=== PATIENT | male | born 1955 | race Caucasian/White ===

== ENCOUNTER 2017-07-09 11:58 | Observation (INO) | payer MEDICARE ==
[2017-07-09] VITALS (8 sets, daily range): BP systolic 122–153; BP diastolic 60–83; PULSE 75–110; RESP 16–20; TEMP 97.6–99.1; O2SAT 91–95
[~2017-07-09] VITALS: Ht 172.7 cm; Wt 90.3 kg
[~2017-07-09 11:58] MED LIST: ALBU17I INH; ALBU6.7H INH; AMLO5TAB22 PO; DOXA1 PO; DUONSOL2 NEB; FENT50DI T-DERMAL; FURO1TAB93 PO; LEVO.025 PO; PRED20 PO; SIMV20 PO; UNKNOWN BP MED; VYTO10TA32 PO; XANA1TAB6 PO; ZITH250T PO; ZOLP10TA3 PO
[2017-07-09] MEDS ORDERED: SYMB80AE INH (12:25)
[2017-07-09] MEDS ORDERED: FENT100D T-DERMAL (12:25)
[2017-07-09] MEDS ORDERED: LEVO25TA4 PO (12:25)
[2017-07-09] MEDS ORDERED: ASPI81TA23 PO (12:25)
[2017-07-09] MEDS ORDERED: OXYC30TA PO (12:25)
[2017-07-09] MEDS ORDERED: XANA1TAB2 PO (12:25)
[2017-07-09] MEDS ORDERED: DOXA1TAB35 PO (12:25)
[2017-07-09] MEDS ORDERED: AMLO5TAB2 PO (12:25)
[2017-07-09] MEDS ORDERED: FENT75DI T-DERMAL (12:25)
[2017-07-09] MEDS ORDERED: AMBI10TA PO (12:25)
[2017-07-09] MEDS ORDERED: HYDR25TA5 PO (12:25)
[2017-07-09] MEDS ORDERED: SIMV20TA PO (12:25)
[2017-07-09] MEDS: RESP: ALBUTEROL 2.5 MG/IPRATROPIUM 0.5 MG NEB (SCH) INH ×4 (12:28→19:44)
[2017-07-09] MEDS ORDERED: methylPREDNISolone SOD SUCC 125 MG/2 ML VIAL IV PUSH ONE (12:30)
[2017-07-09] MEDS ORDERED: SODIUM CHLORIDE 0.9% FLUSH 10 ML FLUSH IVF PRN (12:30)
[2017-07-09 12:34] LABS: AUTOMATED NEUTROPHIL # 4.5 TH/MM3 (1.8-7.7); BASOPHIL # 0.1 TH/MM3 (0-0.2); BASOPHIL % 1.3 % (0.0-2.0); EOSINOPHIL # 0.5 TH/MM3 (0-0.4); EOSINOPHIL % 7.3 % (0.0-4.0); HEMOGLOBIN 15.5 GM/DL (13.0-17.0); LYMPH % 22.2 % (9.0-44.0); LYMPHOCYTE # 1.6 TH/MM3 (1.0-4.8); MEAN CELL VOLUME 84.2 FL (80.0-100.0); MEAN CORPUSCULAR HEMOGLOBIN 28.3 PG (27.0-34.0); MEAN CORPUSCULAR HGB CONC 33.6 % (32.0-36.0); MEAN PLATELET VOLUME 8.2 FL (7.0-11.0); MONO % 6.8 % (0.0-8.0); MONOCYTE # 0.5 TH/MM3 (0-0.9); NEUT % 62.4 % (16.0-70.0); PLATELET COUNT 243 TH/MM3 (150-450); RED BLOOD COUNT 5.46 MIL/MM3 (4.50-5.90); RED CELL DISTRIBUTION WIDTH 12.4 % (11.6-17.2); WHITE BLOOD COUNT 7.2 TH/MM3 (4.0-11.0)
[2017-07-09 12:43] LABS: CHLORIDE 98 MEQ/L (98-107); SODIUM (NA) 136 MEQ/L (136-145)
[2017-07-09 12:47] LABS: ALBUMIN 3.7 GM/DL (3.4-5.0); BICARBONATE 32.9 MEQ/L (21.0-32.0); BLOOD UREA NITROGEN 19 MG/DL (7-18); GLUCOSE,RANDOM 93 MG/DL (74-106)
[2017-07-09 12:48] LABS: PROTHROMBIN TIME - PATIENT 10.1 SEC (9.8-11.6)
[2017-07-09 12:50] LABS: ALT (GPT) 38 U/L (12-78); GLOMERULAR FILTRATION RATE 68 ML/MIN (>89)
[2017-07-09 12:51] LABS: TOTAL BILIRUBIN ADULT 0.3 MG/DL (0.2-1.0); TOTAL PROTEIN 7.7 GM/DL (6.4-8.2)
[2017-07-09 12:53] LABS: ALKALINE PHOSPHATASE 80 U/L (45-117); AST (GOT) 23 U/L (15-37)
[2017-07-09 12:55] LABS: TROPONIN I LESS THAN 0.02 NG/ML (0.02-0.05)
--- NOTE | 2017-07-09 13:06 | RADRPT ---
EXAM DATE/TIME: 07/09/2017 12:37 [place] COMPARISON: No previous studies available for comparison. INDICATIONS : Short of breath, cough MEDICAL HISTORY : Chronic obstructive pulmonary disease. SURGICAL HISTORY : Spinal ENCOUNTER: Initial ACUITY: 3 days PAIN SCORE: 0/10 LOCATION: Bilateral chest FINDINGS: Very minimal proximal changes left lung base. Right lung clear. The heart and pulmonary vascularity are normal.. The cardiomediastinal contours are unremarkable. Osseous structures are intact. CONCLUSION: Minimal peripheral changes left lung base. Nonspecific Bert Palomares MD FACR on July 09, 2017 at 13:04 Board Certified Radiologist. This report was verified electronically.
[2017-07-09] MEDS ORDERED: RESP: ALBUTEROL 2.5 MG/3 ML NEB (SCH) NEB ONE (14:15)
--- NOTE | 2017-07-09 15:00 | PD ---
HPI Chief Complaint: Respiratory Symptoms Time Seen by Provider: 12:10 Travel History International Travel<30 days: No Contact w/Intl Traveler<30days: No Traveled to known affect area: No History of Present Illness HPI Patient is a 62 year old male who comes in complaining of SOB. He has history of COPD and is still smoking. He says that he has had worsening symptoms over the past few days. He has been coughing. He has been using albuterol with minimal relief. He denies fever or chills. He denies chest pain. He says this feels like his COPD, but worse. He denies leg pain or swelling. PFSH Past Medical History Hx Anticoagulant Therapy: No Asthma: Yes Cardiovascular Problems: Yes (HTN, CHOL) High Cholesterol: Yes COPD: Yes Diabetes: No GERD: Yes Genitourinary: Yes (enlarged prostate) Respiratory: Yes (COPD) Immunizations Current: Yes Thyroid Disease: Yes Past Surgical History Other Surgery: Yes (TMJ ) Social History Alcohol Use: Yes (rare) Tobacco Use: Yes (1/3 PPD) Substance Use: No Allergies-Medications (Allergen,Severity, Reaction): Coded Allergies: No Known Allergies (Verified Adverse Reaction, Unknown, 07/09/17) Reported Meds & Prescriptions Reported Meds & Active Scripts Active Reported Oxycodone (Oxycodone HCl) 30 Mg Tab 30 Mg PO Q6H PRN Xanax (Alprazolam) 1 Mg Tab 1 Mg PO Q4HR PRN Hydrochlorothiazide 25 Mg Tab 25 Mg PO DAILY Ambien (Zolpidem Tartrate) 10 Mg Tab 10 Mg PO HS PRN Doxazosin (Doxazosin Mesylate) 2 Mg Tab 2 Mg PO DAILY Amlodipine (Amlodipine Besylate) 5 Mg Tab 5 Mg PO DAILY Levothyroxine (Levothyroxine Sodium) 25 Mcg Tab 25 Mcg PO DAILY Simvastatin 20 Mg Tab 20 Mg PO HS Aspirin EC (Aspirin) 81 Mg Tabdr 81 Mg PO HS Symbicort Inh (Budesonide/Formoterol Fumarate) 80-4.5 Mcg/Act Aero 1 Puff INH Q12HR Fentanyl Patch 72 HR (Fentanyl) 75 Mcg/Hr Patch 75 Mcg T-DERMAL Q72H Remove old patch when new one placed. Fentanyl Patch 72 HR (Fentanyl) 100 Mcg/Hr Patch 100 Mcg T-DERMAL Q72H Remove old patch when new one placed. Review of Systems Except as stated in HPI: all other systems reviewed are Neg General / Constitutional: No: Fever, Chills HENT: No: Headaches, Lightheadedness Cardiovascular: No: Chest Pain or Discomfort Respiratory: Positive: Cough, Shortness of Breath Gastrointestinal: No: Nausea, Vomiting Musculoskeletal: No: Myalgias, Edema Skin: No Rash, No Change in Pigmentation Neurologic: No: Weakness, Dizziness Physical Exam Narrative GENERAL: Awake and alert, in no acute distress. SKIN: Focused skin assessment warm/dry. HEAD: Atraumatic. Normocephalic. EYES: Pupils equal and round. No scleral icterus. ENT: Mucous membranes pink and moist. NECK: Trachea midline. No JVD. CARDIOVASCULAR: Regular rate and rhythm. No murmur appreciated. RESPIRATORY: No accessory muscle use. Diffuse wheezing. Breath sounds equal bilaterally. GASTROINTESTINAL: Abdomen soft, non-tender, nondistended. MUSCULOSKELETAL: No obvious deformities. No clubbing. No cyanosis. No edema. NEUROLOGICAL: Awake and alert. No obvious cranial nerve deficits. Motor grossly within normal limits. Normal speech. PSYCHIATRIC: Appropriate mood and affect; insight and judgment normal. Data Data Last Documented VS Vital Signs Date Time Temp Pulse Resp B/P (MAP) Pulse Ox O2 Delivery O2 Flow Rate FiO2 07/09/17 14:34 95 Nasal Cannula 3.00 07/09/17 12:10 94 18 07/09/17 11:59 98.8 134/60 (84) Orders Orders Complete Blood Count With Diff (07/09/17 12:20) Comprehensive Metabolic Panel (07/09/17 12:20) Act Partial Throm Time (Ptt) (07/09/17 12:20) Prothrombin Time / Inr (Pt) (07/09/17 12:20) Troponin I (07/09/17 12:20) Iv Access Insert/Monitor (07/09/17 12:20) Electrocardiogram (07/09/17 12:20) Ecg Monitoring (07/09/17 12:20) Oximetry (07/09/17 12:20) Oxygen Administration (07/09/17 12:20) Chest, Single Ap (07/09/17 12:20) Sodium Chloride 0.9% Flush (Ns Flush) (07/09/17 12:30) Methylprednisolone So Succ Inj (Solumedr (07/09/17 12:30) Albuterol-Ipratropium Neb (Duoneb Neb) (07/09/17 12:30) Influenzae A/B Antigen (07/09/17 13:52) Albuterol Neb (Albuterol Neb) (07/09/17 14:15) Labs Laboratory Tests Test 07/09/17 12:14 White Blood Count 7.2 TH/MM3 Red Blood Count 5.46 MIL/MM3 Hemoglobin 15.5 GM/DL Hematocrit 46.0 % Mean Corpuscular Volume 84.2 FL Mean Corpuscular Hemoglobin 28.3 PG Mean Corpuscular Hemoglobin Concent 33.6 % Red Cell Distribution Width 12.4 % Platelet Count 243 TH/MM3 Mean Platelet Volume 8.2 FL Neutrophils (%) (Auto) 62.4 % Lymphocytes (%) (Auto) 22.2 % Monocytes (%) (Auto) 6.8 % Eosinophils (%) (Auto) 7.3 % Basophils (%) (Auto) 1.3 % Neutrophils # (Auto) 4.5 TH/MM3 Lymphocytes # (Auto) 1.6 TH/MM3 Monocytes # (Auto) 0.5 TH/MM3 Eosinophils # (Auto) 0.5 TH/MM3 Basophils # (Auto) 0.1 TH/MM3 CBC Comment DIFF FINAL Differential Comment Prothrombin Time 10.1 SEC Prothromb Time International Ratio 1.0 RATIO Activated Partial Thromboplast Time 26.1 SEC Blood Urea Nitrogen 19 MG/DL Creatinine 1.10 MG/DL Random Glucose 93 MG/DL Total Protein 7.7 GM/DL Albumin 3.7 GM/DL Calcium Level 9.0 MG/DL Alkaline Phosphatase 80 U/L Aspartate Amino Transf (AST/SGOT) 23 U/L Alanine Aminotransferase (ALT/SGPT) 38 U/L Total Bilirubin 0.3 MG/DL Sodium Level 136 MEQ/L Potassium Level 4.1 MEQ/L Chloride Level 98 MEQ/L Carbon Dioxide Level 32.9 MEQ/L Anion Gap 5 MEQ/L Estimat Glomerular Filtration Rate 68 ML/MIN Troponin I LESS THAN 0.02 NG/ML MDM Medical Decision Making Medical Screen Exam Complete: Yes Emergency Medical Condition: Yes Medical Record Reviewed: Yes Interpretation(s) ECG shows NSR at 90, no ST elevation of depression. Normal intervals. Differential Diagnosis COPD exacerbation vs pneumonia vs flu Narrative Course Patient is a 62 year old male who comes in complaining of shortness of breath. Exam shows diffuse wheezing and hypoxia. Patient placed on oxygen via NC with improvement of his O2 sat. IV established, labs sent. Labs show no acute abnormalities. CXR performed shows an abnormality at the Left lung base of undetermined significance. Last 24 hours Impressions Chest X-Ray 07/09/17 1220 Signed Impressions: Service Date/Time: Sunday, July 09, 2017 12:37 - CONCLUSION: Minimal peripheral changes left lung base. Nonspecific Bert Palomares MD FACR Given 3 duonebs and solumedrol. Patient reports feeling worse. Given an additional albuterol treatment and Levaquin. Patient to be admitted for further management. Diagnosis Primary Impression: COPD exacerbation Admitting Information Admitting Physician Requests: Lydia Bronson MD Jul 09, 2017 15:00
--- NOTE | 2017-07-09 15:05 | EKG ---
Date Performed: 07/09/2017 Time Performed: 12:58:42 PTAGE: 62 years EKG: Sinus rhythm LOW QRS VOLTAGE IN THE LIMB LEADS NORMAL ECG PREVIOUS TRACING : 10/27/2015 10.15 No significant change from previous tracing noted. DOCTOR: Jeremiah Malik Interpretating Date/Time 07/09/2017 15:04:22
[2017-07-09] MEDS ORDERED: LEVOFLOXACIN 750 MG PREMIX INJ 150 ML IV ONE (15:15)
[2017-07-09] MEDS ORDERED: DOCUSATE SODIUM 100 MG CAP PO PRN (15:45)
[2017-07-09] MEDS ORDERED: ONDANSETRON HCL 4 MG/2 ML VIAL IV PUSH PRN (15:45)
[2017-07-09] MEDS ORDERED: MAGNESIUM HYDROXIDE SUSP 30 ML CUP PO PRN (15:45)
[2017-07-09] MEDS ORDERED: ACETAMINOPHEN 325 MG TAB PO PRN (15:45)
[2017-07-09] MEDS ORDERED: CALCIUM CARBONATE 500 MG CHEWABLE TAB CHEW PRN (15:45)
[2017-07-09] MEDS ORDERED: SODIUM CHLORIDE 0.9% FLUSH 10 ML FLUSH IV FLUSH PRN (15:45)
[2017-07-09] MEDS ORDERED: RESP: ALBUTEROL 2.5 MG/3 ML NEB (PRN) INH (15:45)
[2017-07-09] MEDS ORDERED: PILL SPLITTER OTHER PRN (16:00)
[2017-07-09] MEDS: methylPREDNISolone SOD SUCC 125 MG/2 ML VIAL IV PUSH SCH (18:20)
[2017-07-09] MEDS: ALPRAZolam 1 MG TAB PO PRN (18:33)
[2017-07-09] MEDS: FAMOTIDINE 20 MG TAB PO SCH (20:50)
[2017-07-09] MEDS: PRAVASTATIN SOD 40 MG TAB PO SCH (20:50)
[2017-07-09] MEDS: ASPIRIN EC 81 MG TABEC PO SCH (20:50)
[2017-07-09] MEDS: SODIUM CHLORIDE 0.9% FLUSH 10 ML FLUSH IV FLUSH SCH (20:53)
[2017-07-09] MEDS: BUDESONIDE-FORMOTEROL 80/4.5 MCG INHALER INH SCH (21:49)
[2017-07-10] VITALS: BP 118/60; PULSE 102; RESP 18; TEMP 97.4; O2SAT 92
[2017-07-10] MEDS: ALPRAZolam 1 MG TAB PO PRN (00:38)
[2017-07-10] MEDS: TEMAZEPAM 15 MG CAP PO PRN (00:38)
[2017-07-10] MEDS: methylPREDNISolone SOD SUCC 125 MG/2 ML VIAL IV PUSH SCH ×4 (00:39→17:48)
[2017-07-10] MEDS: LEVOTHYROXINE SODIUM 25 MCG TAB PO SCH (06:21)
[2017-07-10 07:30] VITALS: O2SAT 91
[2017-07-10] MEDS: RESP: ALBUTEROL 2.5 MG/IPRATROPIUM 0.5 MG NEB (SCH) INH ×4 (07:30→19:30)
[2017-07-10 08:00] VITALS: BP 126/70; PULSE 100; RESP 18; TEMP 97.8; O2SAT 93
--- NOTE | 2017-07-10 08:13 | HHI.HP ---
[facility]ician No Primary Care Physician Admission Diagnosis COPD exacerbation Diagnoses: Chief Complaint: Shortness of Breath. Travel History International Travel<30 Days: No Contact w/Intl Traveler <30 Da: No Traveled to Known Affected Are: No History of Present Illness Mr. Russell is a pleasant 62 year old male with a history of hypothyroidism, HTN , hyperlipidemia who presented to the ED due to shortness of breath that started two days prior to this admission on 07/09/2017. Patient reports some cough as well but no fever, chills. Denies any chest pain, abdominal pain. No changes in bladder or bowel habits. Review of Systems Except as stated in HPI: all other systems reviewed are Neg Past Family Social History Past Medical History COPD, hyperlipidemia, hypertension, BPH, Hypothyroidism. Past Surgical History TMJ surgery Reported Medications Oxycodone (Oxycodone HCl) 30 Mg Tab 30 Mg PO Q6H PRN Xanax (Alprazolam) 1 Mg Tab 1 Mg PO Q4HR PRN Hydrochlorothiazide 25 Mg Tab 25 Mg PO DAILY Ambien (Zolpidem Tartrate) 10 Mg Tab 10 Mg PO HS PRN Doxazosin (Doxazosin Mesylate) 2 Mg Tab 2 Mg PO DAILY Amlodipine (Amlodipine Besylate) 5 Mg Tab 5 Mg PO DAILY Levothyroxine (Levothyroxine Sodium) 25 Mcg Tab 25 Mcg PO DAILY Simvastatin 20 Mg Tab 20 Mg PO HS Aspirin EC (Aspirin) 81 Mg Tabdr 81 Mg PO HS Symbicort Inh (Budesonide/Formoterol Fumarate) 80-4.5 Mcg/Act Aero 1 Puff INH Q12HR Fentanyl Patch 72 HR (Fentanyl) 75 Mcg/Hr Patch 75 Mcg T-DERMAL Q72H Remove old patch when new one placed. Fentanyl Patch 72 HR (Fentanyl) 100 Mcg/Hr Patch 100 Mcg T-DERMAL Q72H Remove old patch when new one placed. Allergies: Coded Allergies: No Known Allergies (Verified Allergy, Unknown, 07/09/17) Family History Mother - breast cancer. Social History Smokes 1/3 ppd, drinks rarely. Denies using illicit drugs. Physical Exam Vital Signs Vital Signs Date Time Temp Pulse Resp B/P (MAP) Pulse Ox O2 Delivery O2 Flow Rate FiO2 07/10/17 07:30 91 Nasal Cannula 3.00 07/10/17 00:00 97.4 102 18 118/60 (79) 92 07/09/17 21:01 99.1 110 20 122/83 (96) 91 07/09/17 19:45 92 Nasal Cannula 3.00 07/09/17 17:30 97.6 97 20 140/79 (99) 92 07/09/17 17:20 07/09/17 15:29 91 Nasal Cannula 3.00 07/09/17 15:27 97.7 07/09/17 15:01 75 16 153/75 (101) 94 Nasal Cannula 3.00 07/09/17 14:34 95 Nasal Cannula 3.00 07/09/17 12:10 94 18 94 Nasal Cannula 2.00 07/09/17 12:10 94 Nasal Cannula 2.00 07/09/17 12:10 18 94 Nasal Cannula 2.00 07/09/17 11:59 98.8 105 18 134/60 (84) 92 Physical Exam GENERAL: This is a well-nourished, well-developed patient, in no apparent distress. SKIN: No rashes, ecchymoses or lesions. Warm and dry. HEAD: Atraumatic. Normocephalic. No temporal or scalp tenderness. EYES: Pupils equal round and reactive. No injection or drainage. ENT: Nose without bleeding, purulent drainage or septal hematoma. Airway patent. NECK: Trachea midline. No lymphadenopathy. Supple, nontender, no meningeal signs. CARDIOVASCULAR: Regular rate and rhythm without murmurs, gallops, or rubs. No JVD. RESPIRATORY: Moderate air entry, diffuse wheezing. GASTROINTESTINAL: Abdomen soft, non-tender, nondistended. No guarding. MUSCULOSKELETAL: Extremities without clubbing, cyanosis, or edema. NEUROLOGICAL: Awake and alert. Cranial nerves II through XII intact. No focal neurological deficits. Normal speech. Laboratory Laboratory Tests Test 07/09/17 12:14 White Blood Count 7.2 Red Blood Count 5.46 Hemoglobin 15.5 Hematocrit 46.0 Mean Corpuscular Volume 84.2 Mean Corpuscular Hemoglobin 28.3 Mean Corpuscular Hemoglobin Concent 33.6 Red Cell Distribution Width 12.4 Platelet Count 243 Mean Platelet Volume 8.2 Neutrophils (%) (Auto) 62.4 Lymphocytes (%) (Auto) 22.2 Monocytes (%) (Auto) 6.8 Eosinophils (%) (Auto) 7.3 Basophils (%) (Auto) 1.3 Neutrophils # (Auto) 4.5 Lymphocytes # (Auto) 1.6 Monocytes # (Auto) 0.5 Eosinophils # (Auto) 0.5 Basophils # (Auto) 0.1 CBC Comment DIFF FINAL Differential Comment Prothrombin Time 10.1 Prothromb Time International Ratio 1.0 Activated Partial Thromboplast Time 26.1 Blood Urea Nitrogen 19 Creatinine 1.10 Random Glucose 93 Total Protein 7.7 Albumin 3.7 Calcium Level 9.0 Alkaline Phosphatase 80 Aspartate Amino Transf (AST/SGOT) 23 Alanine Aminotransferase (ALT/SGPT) 38 Total Bilirubin 0.3 Sodium Level 136 Potassium Level 4.1 Chloride Level 98 Carbon Dioxide Level 32.9 Anion Gap 5 Estimat Glomerular Filtration Rate 68 Troponin I LESS THAN 0.02 Date/Time Source Procedure Growth Status 07/09/17 13:55 Nasal Washing Influenza Types A,B Antigen (GIULIANA) - Final NEGATIVE FOR FLU A AND B ANTIGEN.... Complete Result Diagram: 07/09/17 1214 07/09/17 1214 Imaging Last Impressions Chest X-Ray 07/09/17 1220 Signed Impressions: Service Date/Time: Sunday, July 09, 2017 12:37 - CONCLUSION: Minimal peripheral changes left lung base. Nonspecific Bert Palomares MD FACR Caprini VTE Risk Assessment Caprini VTE Risk Assessment: Mod/High Risk (score >= 2) Caprini Risk Assessment Model Point Value = 1 Point Value = 2 Point Value = 3 Point Value = 5 Age 41-60 Minor surgery BMI > 25 kg/m2 Swollen legs Varicose veins or History of unexplained or recurrent spontaneous Oral contraceptives or hormone replacement Sepsis (< 1 month) Serious lung disease, including pneumonia (< 1 month) Abnormal pulmonary function Acute myocardial infarction Congestive heart failure (< 1 month) History of inflammatory bowel disease Medical patient at bed rest Age 61-74 Arthroscopic surgery Major open surgery (> 45 min) Laparoscopic surgery (> 45 min) Malignancy Confined to bed (> 72 hours) Immobilizing plaster cast Central venous access Age >= 75 History of VTE Family history of VTE Factor V Leiden Prothrombin [id number] Lupus anticoagulant Anticardiolipin antibodies Elevated serum homocysteine Heparin-induced thrombocytopenia Other congenital or acquired thrombophilia Stroke (< 1 month) Elective arthroplasty Hip, pelvis, or leg fracture Acute spinal cord injury (< 1 month) Prophylaxis Regimen Total Risk Factor Score Risk Level Prophylaxis Regimen 0-1 Low Early ambulation 2 Moderate Order ONE of the following: *Sequential Compression Device (SCD) *Heparin 5000 units SQ BID 3-4 Higher Order ONE of the following medications: *Heparin 5000 units SQ TID *Enoxaparin/Lovenox 40 mg SQ daily (WT < 150 kg, CrCl > 30 mL/min) *Enoxaparin/Lovenox 30 mg SQ daily (WT < 150 kg, CrCl > 10-29 mL/min) *Enoxaparin/Lovenox 30 mg SQ BID (WT < 150 kg, CrCl > 30 mL/min) AND/OR *Sequential Compression Device (SCD) 5 or more Highest Order ONE of the following medications: *Heparin 5000 units SQ TID (Preferred with Epidurals) *Enoxaparin/Lovenox 40 mg SQ daily (WT < 150 kg, CrCl > 30 mL/min) *Enoxaparin/Lovenox 30 mg SQ daily (WT < 150 kg, CrCl > 10-29 mL/min) *Enoxaparin/Lovenox 30 mg SQ BID (WT < 150 kg, CrCl > 30 mL/min) AND *Sequential Compression Device (SCD) Assessment and Plan Problem List: (1) COPD with acute exacerbation ICD Code: J44.1 - Chronic obstructive pulmonary disease with (acute) exacerbation Assessment and Plan Ms. Russell is a pleasant 62 year old male with a history of COPD who came to the ED due to shortness of breath. He does not require any supplemental oxygen. However his walk test today indicates that he needs home O2. - Acute COPD exacerbation - Continue supplemental O2 as needed to keep O2 sat > 90%. - Walk test, discussed with RT - Continue Levaquin, steroid, DuoNeb, Symbicort. - Continue albuterol inhaler on discharge. - Hypothyroidism - Hypertension - Hyperlipidemia - Continue home meds - amlodipine 5 mg, hydrochlorothiazide, levothyroxine 25 g, pravastatin, aspirin Full code. Ambulation, SCDs Discharge plan: Likely discharge tomorrow with home oxygen set up. Prescriptions in chart. Graeme Muhammad DO Jul 10, 2017 8:13 am
[2017-07-10] MEDS ORDERED: PNEUMOCOCCAL POLYVALENT INJ 25 MCG/0.5 ML SYR IM ONE (10:00)
[2017-07-10] MEDS ORDERED: INFLUENZA VIRUS VACCINE (QUADRIVALENT) 0.5 ML SYR IM ONE (10:00)
[2017-07-10] MEDS ORDERED: OXYGENDME NAS.CANULA (10:16)
[2017-07-10] MEDS ORDERED: XANA1TAB2 PO (10:19)
[2017-07-10] MEDS ORDERED: LEVA750T9 PO (10:19)
[2017-07-10] MEDS ORDERED: PRED50 PO (10:19)
[2017-07-10] MEDS ORDERED: VENTAER INH (10:20)
[2017-07-10] MEDS: DOXAZOSIN MESYLATE 2 MG TAB PO SCH (11:20)
[2017-07-10] MEDS: FAMOTIDINE 20 MG TAB PO SCH ×2 (11:20→20:33)
[2017-07-10] MEDS: SODIUM CHLORIDE 0.9% FLUSH 10 ML FLUSH IV FLUSH SCH ×2 (11:20→20:32)
[2017-07-10] MEDS: BUDESONIDE-FORMOTEROL 80/4.5 MCG INHALER INH SCH ×2 (11:20→20:32)
[2017-07-10] MEDS: HYDROCHLOROTHIAZIDE 25 MG TAB PO SCH (11:21)
[2017-07-10] MEDS: amLODIPine BESYLATE 5 MG TAB PO SCH (11:21)
[2017-07-10] MEDS: ALPRAZolam 0.5 MG TAB PO PRN ×2 (13:07→20:33)
[2017-07-10] MEDS ORDERED: LEVOFLOXACIN 750 MG TAB PO SCH (15:00)
[2017-07-10 16:00] VITALS: BP 123/74; PULSE 102; RESP 14; TEMP 99; O2SAT 92
[2017-07-10 19:33] VITALS: O2SAT 97
[2017-07-10 20:00] VITALS: BP 132/70; PULSE 105; RESP 20; TEMP 97.6; O2SAT 96
[2017-07-10] MEDS: ASPIRIN EC 81 MG TABEC PO SCH (20:32)
[2017-07-10] MEDS: PRAVASTATIN SOD 40 MG TAB PO SCH (20:33)
[2017-07-11] VITALS: BP 123/68; PULSE 103; RESP 20; TEMP 97.2; O2SAT 93
[2017-07-11] MEDS: methylPREDNISolone SOD SUCC 125 MG/2 ML VIAL IV PUSH SCH ×2 (00:09→06:24)
[2017-07-11] MEDS: TEMAZEPAM 15 MG CAP PO PRN (00:10)
[2017-07-11] MEDS: ALPRAZolam 0.5 MG TAB PO PRN ×2 (02:56→09:45)
[2017-07-11] MEDS: LEVOTHYROXINE SODIUM 25 MCG TAB PO SCH (06:24)
--- NOTE | 2017-07-11 07:37 | HHI.DS ---
Discharge Summary Admission Date Jul 09, 2017 at 15:31 Discharge Date: Jul 11, 2017 Admitting Diagnosis COPD exacerbation (1) COPD with acute exacerbation ICD Code: J44.1 - Chronic obstructive pulmonary disease with (acute) exacerbation (2) Acute respiratory failure ICD Code: J96.00 - Acute respiratory failure, unspecified whether with hypoxia or hypercapnia Procedures none Brief History - From Admission Mr. Russell is a pleasant 62 year old male with a history of hypothyroidism, HTN , hyperlipidemia who presented to the ED due to shortness of breath that started two days prior to this admission on 07/09/2017. Patient reports some cough as well but no fever, chills. Denies any chest pain, abdominal pain. No changes in bladder or bowel habits. CBC/BMP: 07/09/17 1214 07/09/17 1214 Significant Findings Laboratory Tests Test 07/09/17 12:14 Eosinophils (%) (Auto) 7.3 % (0.0-4.0) Eosinophils # (Auto) 0.5 TH/MM3 (0-0.4) Blood Urea Nitrogen 19 MG/DL (7-18) Carbon Dioxide Level 32.9 MEQ/L (21.0-32.0) Estimat Glomerular Filtration Rate 68 ML/MIN (>89) Troponin I LESS THAN 0.02 NG/ML Imaging Last Impressions Chest X-Ray 07/09/17 1220 Signed Impressions: Service Date/Time: Sunday, July 09, 2017 12:37 - CONCLUSION: Minimal peripheral changes left lung base. Nonspecific Bert Palomares MD FACR PE at Discharge GENERAL: This is a well-nourished, well-developed patient, in no apparent distress. CARDIOVASCULAR: Regular rate and rhythm without murmurs, gallops, or rubs. No JVD. RESPIRATORY: Clear to auscultation, no wheezing at this time. No accessory muscle use. GASTROINTESTINAL: Abdomen soft, non-tender, nondistended. No guarding. MUSCULOSKELETAL: Extremities without clubbing, cyanosis, or edema. NEUROLOGICAL: Awake and alert. Cranial nerves II through XII intact. No focal neurological deficits. Normal speech. Pt update on day of discharge Patient in nad. Says he just received nebs, less wheezing. feels improved some, need O2 at DC.no cough fever or chills. Hospital Course Ms. Rsusell is a pleasant 62 year old male with a history of COPD who came to the ED due to shortness of breath. He does not require any supplemental oxygen. However his walk test today indicates that he needs home O2. Patient with Acute COPD exacerbation. Continue supplemental O2 as needed to keep O2 sat > 90%. Failed Walk test, needs O2 at home discussed with RT and CM ff for DC plan to have O2 at home Received Levaquin, steroid, DuoNeb, Symbicort. Continue albuterol inhaler on discharge. Patient improved, discharged home in stable condition to follow up as Op with PCP and consultants. Pt Condition on Discharge: Stable Discharge Disposition: Discharge Home Discharge Time: > 30 minutes Discharge Instructions Follow up Referrals: PCP Follow-up - 1 Week Pulmonology - 2 Weeks New Medications: Albuterol 18 GM Inh (Ventolin Hfa 18 GM Inh) 90 Mcg/Act Aer 1 PUFF INH Q4H PRN for SHORTNESS OF BREATH, #1 INHALER 0 Refills Oxygen (O2) (Oxygen (O2)) Device LITER SHANNAN.CANULA CONTINUOUS for Prevent Hypoxemia, #2 Oxygen Concentrator Portable Gaseous 2 L/min via Nasal Canula Continuous For 99 months Prednisone (Prednisone) 50 Mg Tab 50 MG PO DAILY for COPD for 4 Days, #4 TAB 0 Refills Alprazolam (Xanax) 1 Mg Tab 0.5 MG PO Q6HR PRN for ANXIETY, #20 TAB Levofloxacin (Levaquin) 750 Mg Tablet 750 MG PO Q24H for Infection, #5 TAB Continued Medications: Amlodipine (Amlodipine) 5 Mg Tab 5 MG PO DAILY for Blood Pressure Management, #30 TAB [address] (Aspirin EC) 81 Mg Tabdr 81 MG PO HS, TAB 0 Refills Budesonide-Formoterol Inh (Symbicort Inh) 80-4.5 Mcg/Act Aero 1 PUFF INH Q12HR for Asthma Management, #1 INHALER 0 Refills Doxazosin (Doxazosin) 2 Mg Tab 2 MG PO DAILY, #30 TAB 0 Refills Fentanyl Patch 72 HR (Fentanyl Patch 72 HR) 100 Mcg/Hr Patch 100 MCG T-DERMAL Q72H for Pain Management, #10 PATCH 0 Refills Remove old patch when new one placed. Fentanyl Patch 72 HR (Fentanyl Patch 72 HR) 75 Mcg/Hr Patch 75 MCG T-DERMAL Q72H for Pain Management, #10 PATCH 0 Refills Remove old patch when new one placed. Hydrochlorothiazide (Hydrochlorothiazide) 25 Mg Tab 25 MG PO DAILY, #30 TAB 0 Refills Levothyroxine (Levothyroxine) 25 Mcg Tab 25 MCG PO DAILY for Thyroid, #30 TAB 0 Refills Oxycodone (Oxycodone) 30 Mg Tab 30 MG PO Q6H PRN for PAIN, TAB 0 Refills Simvastatin (Simvastatin) 20 Mg Tab 20 MG PO HS for Cholesterol Management, #30 TAB 0 Refills Zolpidem (Ambien) 10 Mg Tab 10 MG PO HS PRN for INSOMNIA, TAB 0 Refills Discontinued Medications: Alprazolam (Xanax) 1 Mg Tab 1 MG PO Q4HR PRN for ANXIETY, TAB 0 Refills Deloris Malhotra MD Jul 11, 2017 07:37
[2017-07-11 08:00] VITALS: BP 133/90; PULSE 91; RESP 16; TEMP 97.6; O2SAT 95
[2017-07-11] MEDS: RESP: ALBUTEROL 2.5 MG/IPRATROPIUM 0.5 MG NEB (SCH) INH ×2 (08:09→10:48)
[2017-07-11 08:11] VITALS: O2SAT 92
[2017-07-11] MEDS: SODIUM CHLORIDE 0.9% FLUSH 10 ML FLUSH IV FLUSH SCH (09:45)
[2017-07-11] MEDS: DOXAZOSIN MESYLATE 2 MG TAB PO SCH (09:46)
[2017-07-11] MEDS: HYDROCHLOROTHIAZIDE 25 MG TAB PO SCH (09:46)
[2017-07-11] MEDS: FAMOTIDINE 20 MG TAB PO SCH (09:46)
[2017-07-11] MEDS: amLODIPine BESYLATE 5 MG TAB PO SCH (09:46)
[2017-07-11] MEDS: BUDESONIDE-FORMOTEROL 80/4.5 MCG INHALER INH SCH (09:49)
[2017-07-11 10:46] VITALS: RESP 18
== END 2017-07-11 13:00 | disposition home health service (06) ==
LOC: PHED 11:58 → PHEDA 15:31 → PH3A 17:10
PROVIDERS: ADMIT Hospitalist; ATTEND Hospitalist
DX: J44.1 Chronic obstructive pulmonary disease with (acute) exacerbation (principal); J96.01 Acute respiratory failure with hypoxia; I10 Essential (primary) hypertension; E78.5 Hyperlipidemia, unspecified; E03.9 Hypothyroidism, unspecified; F17.210 Nicotine dependence, cigarettes, uncomplicated; K21.9 Gastro-esophageal reflux disease without esophagitis; N40.0 Benign prostatic hyperplasia without lower urinary tract symptoms; Z79.899 Other long term (current) drug therapy
CPT/HCPCS: 71010; 80053; 84484; 85025; 85610; 85730; 87804; 93005; 94150; 94620; 94640; 94664; 96365; 96366; 96375; 96376; 99285; G0378; J1956; J2930; J7613

== ENCOUNTER 2018-01-25 20:35 | Observation (INO) ==
[2018-01-25] MEDS ORDERED: MethylPREDNISolone Sod Succinate Inj 125 MG/2 ML Vial IV.PUSH ONE (20:57)
[2018-01-25 21:20] LABS: Baso # (Auto) 0.1 th/mm3 (0.0-0.2); Baso % (Auto) 0.9 % (0.0-2.0); Eos # (Auto) 0.6 th/mm3 (0.0-0.4); Eos % (Auto) 9.2 % (0.0-4.0); Hemoglobin 13.6 gm/dL (13.0-17.0); Lymph # (Auto) 1.6 th/mm3 (1.0-4.8); Lymph % (Auto) 23.7 % (9.0-44.0); Mean Corpuscular Hemoglobin 29.4 pg (27.0-34.0); Mean Platelet Volume 7.9 fL (7.0-11.0); Mono # (Auto) 0.6 th/mm3 (0.0-0.9); Mono % (Auto) 9.4 % (0.0-8.0); Neut # (Auto) 3.9 th/mm3 (1.8-7.7); Neut % (Auto) 56.8 % (16.0-70.0); Platelet Count 255 th/mm3 (150-450); Red Blood Count 4.65 mil/mm3 (4.50-5.90); Red Cell Distribution Width 12.9 % (11.6-17.2); White Blood Count 6.8 th/mm3 (4.0-11.0)
--- NOTE | 2018-01-25 21:23 | ED ---
HPI General Chief complaint: Respiratory Symptoms Stated complaint: SOB x 1 wk hx COPD Time Seen by Provider: 01/25/18 20:52 Source: patient Mode of arrival: ambulatory Limitations: no limitations History of Present Illness HPI narrative: Patient is a 62-year-old male with history of COPD on 2 L of nasal cannula at all times, hypertension and hyperlipidemia, presents the emergency room with complaints of shortness of breath. Patient reports that his mother 2 weeks ago and he traveled to [place] by plane for the services. Patient reports that after he returned home, he began to feel shortness of breath. Patient reports that for the past 10 days has been feeling short of breath at rest as well as on exertion. Patient is using his 2 L nasal cannula at all times with no relief of symptoms. He did follow-up with his primary care doctor, Dr.Ejaz Muhammad 7 days ago and was started on erythromycin 500 mg, patient reports that he completed a 7 day course of the antibiotics. Patient reports that he was still not feeling well and continued to have shortness of breath so he follows up with his primary care doctor today who told him to go to the emergency room for evaluation as he was unsure why he was feeling shortness of breath. Patient reports that he has not had any fever or chills, patient reports that he did have productive cough with thick green sputum earlier into the course of his sickness, reports that his cough is now nonproductive. Patient denies any chest pain at this time. Patient did try using nebulizer treatments at home with no relief of symptoms. Patient denies history of DVT or PE. Patient reports that he was a past smoker, he no longer smokes cigarettes. Related Data Home Medications Medication Instructions Recorded Confirmed alprazolam [Xanax] 1 mg PO Q4-6H 01/25/18 01/25/18 amlodipine 5 mg PO DAILY 01/25/18 01/25/18 aspirin 81 mg PO DAILY 01/25/18 01/25/18 budesonide-formoterol [Symbicort] 2 puff INHALATION BID 01/25/18 01/25/18 doxazosin 2 mg PO DAILY 01/25/18 01/25/18 fentanyl 1 patch TRANSDERMAL Q72H 01/25/18 01/25/18 hydrochlorothiazide 25 mg PO DAILY 01/25/18 01/25/18 levothyroxine 25 mcg PO DAILY 01/25/18 01/25/18 oxycodone 30 mg PO Q4-6H PRN 01/25/18 01/25/18 simvastatin 20 mg PO QPM 01/25/18 01/25/18 zolpidem [Ambien] 10 mg PO HS 01/25/18 01/25/18 Allergies Allergy/AdvReac Type Severity Reaction Status Date / Time No Known Drug Allergies Allergy Anemia Verified 01/25/18 20:49 Review of Systems Except as stated in HPI: all other systems reviewed are negative [facility] Medical History Medical History Anxiety (Acute) Chronic back pain (Acute) Chronic obstructive airway disease (Acute) Hypercholesteremia (Acute) Hypertension (Acute) Hypothyroidism (Acute) TMJ (dislocation of temporomandibular joint) (Acute) Surgical History Surgical History Previous back surgery (Acute) Social History Social History Substance History: No History of Abuse Second Hand Smoke Exposure: No Smoking Status: Former smoker How Often Do You Have a Drink Containing Alcohol: Never Recent Travel in [facility] within the Last 8 Weeks: No Recent Out of Country Travel within the Last 8 Weeks: No Immunization History Tetanus Immunization: <5 Years Hx Influenza Vaccine This Season: Yes Exam Narrative Exam Narrative: GENERAL: Moderate distress SKIN: Focused skin assessment warm/dry. HEAD: Atraumatic. Normocephalic. EYES: Pupils equal and round. No scleral icterus. No injection or drainage. ENT: No nasal bleeding or discharge. Mucous membranes pink and moist. NECK: Trachea midline. No JVD. CARDIOVASCULAR: Regular rate and rhythm. No murmur appreciated. RESPIRATORY: No accessory muscle use. Scattered wheezing, course breath sounds. Breath sounds equal bilaterally. GASTROINTESTINAL: Abdomen soft, non-tender, nondistended. Hepatic and splenic margins not palpable. MUSCULOSKELETAL: No obvious deformities. No clubbing. No cyanosis. No edema. NEUROLOGICAL: Awake and alert. No obvious cranial nerve deficits. Motor grossly within normal limits. Normal speech. PSYCHIATRIC: Appropriate mood and affect; insight and judgment normal. Course Initial Documented Vital Signs Temperature 98.8 F 01/25/18 20:40 Pulse Rate 112 H 01/25/18 20:40 Respiratory Rate 18 01/25/18 20:40 Blood Pressure 116/81 01/25/18 20:40 Pulse Oximetry 90 L 01/25/18 20:40 Last Documented Vital Signs Temperature 98.8 F 01/25/18 20:40 Pulse Rate 100 H 01/25/18 22:19 Respiratory Rate 18 01/25/18 22:37 Blood Pressure 134/86 01/25/18 22:19 Pulse Oximetry 94 L 01/25/18 22:19 Medical Decision Making MDM Narrative Medical decision making narrative: During the course of the patients emergency department visit, the patients history, examination, and differential diagnosis were reviewed with the patient. The patient was placed on a rn cardiac cath with oximetry and frequent blood pressure monitoring. The patient had an IV access obtained and blood work sent for analysis. The patient was initially provided IV Solu-Medrol as well as DuoNeb's Patient reports that he did have mild relief after Solu-Medrol and duo nebs are ordered. He was still feeling short of breath. CT of the chest was ordered to rule out pulmonary embolism. On the CTA, which showed no obvious pulmonary embolism, it did show minimal infiltrates, patient has been pancultured he has been given a dose of azithromycin as well as Rocephin. Patient will be admitted to the hospital for COPD exacerabation case reviewed with Dr. Martin who accepts pt to service Differential Diagnosis Differential Diagnosis: Pneumonia, COPD, PE, ACS, arrhythmia Lab Data Result diagrams: 01/25/18 21:10 01/25/18 21:10 Lab Results 01/25/18 01/25/18 01/25/18 Range/Units 21:10 21:10 21:10 CBC w Diff Auto diff final WBC 6.8 (4.0-11.0) th/mm3 RBC 4.65 (4.50-5.90) mil/mm3 Hgb 13.6 (13.0-17.0) gm/dL Hct 39.0 (39.0-51.0) % MCV 84.0 (80.0-100.0) fL MCH 29.4 (27.0-34.0) pg MCHC 35.0 (32.0-36.0) % RDW 12.9 (11.6-17.2) % Plt Count 255 (150-450) th/mm3 MPV 7.9 (7.0-11.0) fL Neut % (Auto) 56.8 (16.0-70.0) % Lymph % (Auto) 23.7 (9.0-44.0) % Twiggs % (Auto) 9.4 H (0.0-8.0) % Eos % (Auto) 9.2 H (0.0-4.0) % Baso % (Auto) 0.9 (0.0-2.0) % Neut # (Auto) 3.9 (1.8-7.7) th/mm3 Lymph # (Auto) 1.6 (1.0-4.8) th/mm3 Twiggs # (Auto) 0.6 (0.0-0.9) th/mm3 Eos # (Auto) 0.6 H (0.0-0.4) th/mm3 Baso # (Auto) 0.1 (0.0-0.2) th/mm3 WBC Differential . Differential Comment . PT (9.8-11.6) sec INR Ratio APTT (24.3-30.1) sec D-Dimer Quant (PE/DVT) 1.28 H (0.00-0.50) mg/L FEU Puncture Site Patient Temperature O2 Saturation (90-100) % ABG pH (7.380-7.420) ABG pCO2 (38-42) mmHg ABG pO2 (61-120) mmHg ABG HCO3 (22-26) mmol/L ABG O2 Content (12.0-20.0) Vol % ABG Base Excess (-2-2) mmol/L ABG Methemoglobin (0-2) % Eliot Test Hemoglobin (12.0-16.0) G/DL Carboxyhemoglobin (0-4) % Inspired O2 % Critical Value Sodium 141 (136-145) meq/L Potassium 4.3 (3.5-5.1) meq/L Chloride 103 (98-107) meq/L Carbon Dioxide 32.2 H (21.0-32.0) meq/L Anion Gap 6 (5-15) meq/L BUN 20 H (7-18) mg/dL Creatinine 1.20 (0.60-1.30) mg/dL Estimated GFR 61 L (>89) mL/min Random Glucose 104 (74-106) mg/dL Calcium 9.1 (8.5-10.1) mg/dL Total Bilirubin 0.2 (0.2-1.0) mg/dL AST 17 (15-37) U/L ALT 32 (12-78) U/L Alkaline Phosphatase 72 (45-117) U/L Troponin I Less than 0.02 L (0.02-0.05) ng/mL B-Natriuretic Peptide (0-100) pg/mL Total Protein 7.1 (6.4-8.2) g/dL Albumin 3.4 (3.4-5.0) g/dL 01/25/18 01/25/18 01/25/18 Range/Units 21:10 21:10 21:15 CBC w Diff WBC (4.0-11.0) th/mm3 RBC (4.50-5.90) mil/mm3 Hgb (13.0-17.0) gm/dL Hct (39.0-51.0) % MCV (80.0-100.0) fL MCH (27.0-34.0) pg MCHC (32.0-36.0) % RDW (11.6-17.2) % Plt Count (150-450) th/mm3 MPV (7.0-11.0) fL Neut % (Auto) (16.0-70.0) % Lymph % (Auto) (9.0-44.0) % Twiggs % (Auto) (0.0-8.0) % Eos % (Auto) (0.0-4.0) % Baso % (Auto) (0.0-2.0) % Neut # (Auto) (1.8-7.7) th/mm3 Lymph # (Auto) (1.0-4.8) th/mm3 Twiggs # (Auto) (0.0-0.9) th/mm3 Eos # (Auto) (0.0-0.4) th/mm3 Baso # (Auto) (0.0-0.2) th/mm3 WBC Differential Differential Comment PT 10.3 (9.8-11.6) sec INR 1.0 Ratio APTT 24.7 (24.3-30.1) sec D-Dimer Quant (PE/DVT) (0.00-0.50) mg/L FEU Puncture Site Right radial Patient Temperature 98.6 O2 Saturation 94 (90-100) % ABG pH 7.39 (7.380-7.420) ABG pCO2 52 H* (38-42) mmHg ABG pO2 74 (61-120) mmHg ABG HCO3 31 H (22-26) mmol/L ABG O2 Content 17.4 (12.0-20.0) Vol % ABG Base Excess 6.0 H (-2-2) mmol/L ABG Methemoglobin 1.3 (0-2) % Eliot Test Y Hemoglobin 13.2 (12.0-16.0) G/DL Carboxyhemoglobin 1.3 (0-4) % Inspired O2 21 % Critical Value Yes Sodium (136-145) meq/L Potassium (3.5-5.1) meq/L Chloride (98-107) meq/L Carbon Dioxide (21.0-32.0) meq/L Anion Gap (5-15) meq/L BUN (7-18) mg/dL Creatinine (0.60-1.30) mg/dL Estimated GFR (>89) mL/min Random Glucose (74-106) mg/dL Calcium (8.5-10.1) mg/dL Total Bilirubin (0.2-1.0) mg/dL AST (15-37) U/L ALT (12-78) U/L Alkaline Phosphatase (45-117) U/L Troponin I (0.02-0.05) ng/mL B-Natriuretic Peptide 6 (0-100) pg/mL Total Protein (6.4-8.2) g/dL Albumin (3.4-5.0) g/dL Imaging Data Radiologist's impression: ITS Impressions Chest X-Ray 01/25/18 20:57 CONCLUSION: No acute abnormality is identified. Chest CTA 01/25/18 22:08 CONCLUSION: 1. Minimal bibasilar densities could be atelectasis or minimal infiltrates. 2. Mild emphysema and slight bronchiectatic changes. 3. No evidence for pulmonary embolism. ECG Data EKG Prior to Arrival: No Attestation: I personally reviewed and interpreted this ECG as follows: Interpretation: EKG at 2111: Sinus tachycardia at 102 bpm, QT/QTc 325/384, there is no acute ST or T-wave changes Discharge Plan Discharge Disposition Patient Disposition: 30 Still Patient Physicians Team ED Provider: Teresa Henry Primary Care Provider: Vernon Muhammad Rxs /Orders / Referrals /Forms Prescriptions: No Action alprazolam [Xanax] 1 mg Tablet 1 mg PO Q4-6H RF: 0 amlodipine 5 mg Tablet 5 mg PO DAILY RF: 0 fentanyl 100 mcg/hr Patch 72 Hour 1 patch TRANSDERMAL Q72H RF: 0 simvastatin 20 mg Tablet 20 mg PO QPM RF: 0 hydrochlorothiazide 25 mg Tablet 25 mg PO DAILY RF: 0 doxazosin 2 mg Tablet 2 mg PO DAILY RF: 0 budesonide-formoterol [Symbicort] 80-4.5 mcg/actuation Hfa Aerosol Inhaler 2 puff INHALATION BID RF: 0 levothyroxine 25 mcg Capsule 25 mcg PO DAILY RF: 0 oxycodone 30 mg Tablet 30 mg PO Q4-6H PRN (Reason: Pain, Moderate) RF: 0 zolpidem [Ambien] 10 mg Tablet 10 mg PO HS RF: 0 aspirin 81 mg Tablet,Chewable 81 mg PO DAILY RF: 0 Status ED Status: With Doctor
[2018-01-25 21:28] LABS: ABG PCO2 52 mmHg (38-42); ABG PO2 74 mmHg (61-120)
[2018-01-25 21:31] LABS: Chloride 103 meq/L (98-107); Potassium 4.3 meq/L (3.5-5.1); Sodium 141 meq/L (136-145)
[2018-01-25 21:34] LABS: Calcium 9.1 mg/dL (8.5-10.1)
[2018-01-25 21:35] LABS: Albumin 3.4 g/dL (3.4-5.0); Anion Gap 6 meq/L (5-15); Blood Urea Nitrogen 20 mg/dL (7-18); Carbon Dioxide 32.2 meq/L (21.0-32.0); Glucose,Random 104 mg/dL (74-106)
[2018-01-25 21:37] LABS: Activated Partial Thrombo Time 24.7 sec (24.3-30.1); Prothrombin Time 10.3 sec (9.8-11.6)
[2018-01-25 21:38] LABS: Alanine Aminotransferase 32 U/L (12-78); Aspartate Aminotransferase 17 U/L (15-37); Glomerular Filtration Rate 61 mL/min (>89)
[2018-01-25 21:40] LABS: Total Protein 7.1 g/dL (6.4-8.2)
[2018-01-25 21:41] LABS: Alkaline Phosphatase 72 U/L (45-117)
--- NOTE | 2018-01-25 21:55 | XR ---
EXAM DATE: 01/25/2018 9:37 PM EDT AGE/SEX: 62 years / Male INDICATIONS: Shortness of breath. CLINICAL DATA: This is the patient's initial encounter. Patient reports that signs and symptoms have been present for 1 day and indicates a pain score of 0/10. MEDICAL/SURGICAL HISTORY: Chronic obstructive pulmonary disease. None. COMPARISON: [facility], CT PULMONARY ANGIOGRAM, 10/27/2015. [facility], CHEST PA & LAT, 10/27/2015. . FINDINGS: 2 AP views of the chest demonstrate a normal-sized cardiac silhouette. No pleural effusion, airspace consolidation, or pneumothorax is identified. There is stable interstitial prominence bilaterally. EK G lines overlie the patient. The bones demonstrate no acute finding. CONCLUSION: No acute abnormality is identified. Electronically signed by: Carlos Kearney MD 01/25/2018 9:54 PM EDT
[2018-01-25] MEDS ORDERED: Morphine Inj 4 MG/ML Vial IV.PUSH ONE (22:11)
--- NOTE | 2018-01-25 23:19 | CT ---
EXAM DATE: 01/25/2018 11:05 PM EDT AGE/SEX: 62 years / Male INDICATIONS: Short of breath. CLINICAL DATA: This is the patient's initial encounter. Patient reports that signs and symptoms have been present for 1 week and indicates a pain score of 0/10. MEDICAL/SURGICAL HISTORY: Chronic obstructive pulmonary disease. Hypertension. Hypothyroidism. . Back surgery. RADIATION DOSE: 19.66 CTDI (mGy) COMPARISON: [facility], CT PULMONARY ANGIOGRAM, 10/27/2015. . TECHNIQUE: Volumetric scanning was performed using a multi-row detector CT scanner during bolus infu rene of 65 ml Omnipaque 350 (iohexol) nonionic water-soluble contrast as a single exam dose. The sanket a was post processed with a variety of visualization algorithms including full volume maximum intensi ty projection and sliding thin slab reformation. Using automated exposure control and adjustment of t he mA and/or kV according to patient size, radiation dose was kept as low as reasonably achievable to obtain optimal diagnostic quality images. DICOM format image data is available electronically for r eview and comparison. FINDINGS: Pulmonary Arteries: No filling defects are seen in the pulmonary arteries out to the subsegmental ve ssels. The left and right pulmonary arteries are normal in diameter. Lung: Minimal bibasilar densities. No consolidation. Slight bronchiectatic changes. Mild emphysema. Effusion: None. Mediastinum: No evidence of mediastinal or hilar adenopathy. Other: The axilla is unremarkable. CONCLUSION: 1. Minimal bibasilar densities could be atelectasis or minimal infiltrates. 2. Mild emphysema and slight bronchiectatic changes. 3. No evidence for pulmonary embolism. Electronically signed by: Adrián Tilley MD 01/25/2018 11:17 PM EDT
[2018-01-25] MEDS ORDERED: Azithromycin Inj 500 MG in Sodium Chlor 0.9% Inj 250 ML IV.SIG ONE (23:28)
[2018-01-25] MEDS ORDERED: Non-Formulary Drug (Oxycodone [Oxycodone] 30 MG) PO PRN (23:41)
[2018-01-25] MEDS ORDERED: Bisacodyl 10 MG Supp RECTAL PRN (23:45)
[2018-01-25] MEDS ORDERED: Acetaminophen 325 MG Tablet PO PRN (23:45)
[2018-01-26] MEDS: MethylPREDNISolone Sod Succinate Inj 40 MG/ML Vial IV.PUSH SCH ×5 (00:16→23:44)
[2018-01-26 06:10] LABS: Baso # (Auto) 0.1 th/mm3 (0.0-0.2); Baso % (Auto) 0.8 % (0.0-2.0); Eos % (Auto) 0.6 % (0.0-4.0); Hemoglobin 13.6 gm/dL (13.0-17.0); Lymph # (Auto) 0.4 th/mm3 (1.0-4.8); Lymph % (Auto) 6.3 % (9.0-44.0); Mean Corpuscular HGB Conc 34.9 % (32.0-36.0); Mean Corpuscular Hemoglobin 29.3 pg (27.0-34.0); Mean Corpuscular Volume 84.1 fL (80.0-100.0); Mean Platelet Volume 8.6 fL (7.0-11.0); Mono # (Auto) 0.1 th/mm3 (0.0-0.9); Mono % (Auto) 0.9 % (0.0-8.0); Neut # (Auto) 6.5 th/mm3 (1.8-7.7); Neut % (Auto) 91.4 % (16.0-70.0); Platelet Count 247 th/mm3 (150-450); Red Blood Count 4.64 mil/mm3 (4.50-5.90); Red Cell Distribution Width 12.6 % (11.6-17.2); White Blood Count 7.1 th/mm3 (4.0-11.0)
[2018-01-26 06:22] LABS: Chloride 102 meq/L (98-107); Potassium 4.1 meq/L (3.5-5.1); Sodium 140 meq/L (136-145)
[2018-01-26 06:29] LABS: Albumin 3.3 g/dL (3.4-5.0); Anion Gap 7 meq/L (5-15); Blood Urea Nitrogen 19 mg/dL (7-18); Glucose,Random 151 mg/dL (74-106)
[2018-01-26 06:32] LABS: Alanine Aminotransferase 31 U/L (12-78); Aspartate Aminotransferase 15 U/L (15-37); Glomerular Filtration Rate 68 mL/min (>89)
[2018-01-26 06:34] LABS: Total Protein 7.1 g/dL (6.4-8.2)
[2018-01-26 06:35] LABS: Alkaline Phosphatase 71 U/L (45-117)
[2018-01-26] MEDS: amLODIPine 5 MG Tablet PO SCH (08:57)
[2018-01-26] MEDS: Senna/Docusate Sodium 8.6/50 MG Tablet PO SCH ×2 (08:57→20:58)
[2018-01-26] MEDS: guaiFENesin 600 MG ER Tablet PO SCH ×2 (08:57→20:58)
[2018-01-26] MEDS ORDERED: LEVOTHYROXINE 25 MCG PO SCH (09:00)
[2018-01-26] MEDS: Budesonide-Formoterol 160/4.5 MCG 6 GM Inhaler INH SCH ×2 (09:06→20:59)
--- NOTE | 2018-01-26 17:36 | ECG ---
Date Performed: 01/25/2018 Time Performed: 21:12:45 PTAGE: 62 years EKG: SINUS TACHYCARDIA ABNORMAL RHYTHM ECG PREVIOUS TRACING : 07/09/2017 Since the previous tracing, no significant change noted DOCTOR: Leonel Mojica Interpretating Date/Time 01/26/2018 17:35:35
[2018-01-26] MEDS: Azithromycin Inj 500 MG in Sodium Chlor 0.9% Inj 250 ML IV.SIG SCH (23:44)
[2018-01-27] MEDS: MethylPREDNISolone Sod Succinate Inj 40 MG/ML Vial IV.PUSH SCH ×3 (05:56→18:29)
[2018-01-27] MEDS: guaiFENesin 600 MG ER Tablet PO SCH ×2 (08:31→22:38)
[2018-01-27] MEDS: Senna/Docusate Sodium 8.6/50 MG Tablet PO SCH ×2 (08:31→22:39)
[2018-01-27] MEDS: amLODIPine 5 MG Tablet PO SCH (08:31)
[2018-01-27] MEDS: Budesonide-Formoterol 160/4.5 MCG 6 GM Inhaler INH SCH ×2 (08:33→22:39)
[2018-01-27] MEDS: Azithromycin Inj 500 MG in Sodium Chlor 0.9% Inj 250 ML IV.SIG SCH (22:35)
[2018-01-28] MEDS: MethylPREDNISolone Sod Succinate Inj 40 MG/ML Vial IV.PUSH SCH ×2 (05:50→05:51)
[2018-01-28] MEDS: Senna/Docusate Sodium 8.6/50 MG Tablet PO SCH (08:57)
[2018-01-28] MEDS: guaiFENesin 600 MG ER Tablet PO SCH (08:57)
[2018-01-28] MEDS: Budesonide-Formoterol 160/4.5 MCG 6 GM Inhaler INH SCH (08:57)
[2018-01-28] MEDS: amLODIPine 5 MG Tablet PO SCH (08:57)
--- NOTE | 2018-01-28 11:53 | P.HP ---
History of Present Illness Primary Care Physician: Vernon Muhammad MD History of Present Illness: 62 years old white male with past medical history significant for COPD. Hypertension Hypothyrodism hyperlipidemia anxiety and previous back surgery came to my office c/o SOB/ Wheezing no nausea/ vomiting/ no fever/ chills he is oxygen dependent and feeling SOB with 4 liter oxygen with nasal canula I advised him to go to [facility] ER He went to [facility] and was admitted with COPD Exacerbation after ER Treatment he was feeling better - Diagnosis (1) COPD exacerbation (2) Hypertension (3) Hyperlipidemia (4) Hypothyroid (5) Anxiety (6) Chronic lower back pain Inpatient Certification: I certify that the inpatient services were ordered in accordance with Medicare regulations governing the order. This includes certification that hospital inpatient services are reasonable and necessary and in the case of services not specified as inpatient-only under 42 CFR 419.22(n), that they are appropriately provided as inpatient services in accordance to with the 2-midnight benchmark under 43 CFR 412.3(e) Review of Systems All other systems reviewed negative except as stated in HPI Constitutional: Reports weakness Respiratory: Reports chest congestion, Reports cough, Reports excessive phlegm production, Reports shortness of breath, Reports wheezing PMFSH - History History Provided By: Patient - Medical History Medical History: Medical History (Last Reviewed 01/28/18 @ 11:44 by Vernon Muhammad MD) Anxiety Chronic back pain Chronic obstructive airway disease Hypercholesteremia Hypertension Hypothyroidism TMJ (dislocation of temporomandibular joint) - Surgical History Surgical History: Surgical History (Last Reviewed 01/28/18 @ 11:44 by Vernon Muhammad MD) Previous back surgery - Tobacco History Second Hand Smoke Exposure: No Tobacco Use In Past 30 Days: Yes Smoking Status: Former smoker - Alcohol History How Often Do You Have a Drink Containing Alcohol: Never - Substance Use History Substance History: No History of Abuse - Travel History Recent Travel in the [place] Within the Last 8 Weeks: No Recent Travel Out of the Country Within the Last 8 Weeks: No - Immunization History Tetanus Immunization: <5 Years Hx Influenza Vaccine This Season: Yes Medications and Allergies Active Medications: Active Medications Acetaminophen (Tylenol) 650 mg PO Q4H PRN PRN Reason: FEVER/PAIN 1-2 Al Hydroxide/Mg Hydroxide (Milk Of Magnesia Liq) 30 ml PO Q12H PRN PRN Reason: Mild Constipation Albuterol (Duoneb Neb (Prn)) 1 ampul NEB Q2HR NEB PRN PRN Reason: SOB/WHEEZING Albuterol (Duoneb Neb (Yazan)) 1 ampul NEB Q6HR WHILE AWAKE NEB [facility] Last Admin: 01/28/18 08:08 Dose: 1 ampul Alprazolam (Xanax) 1 mg PO Q4H PRN PRN Reason: ANXIETY Last Admin: 01/28/18 10:47 Dose: 1 mg Amlodipine Besylate (Norvasc) 5 mg PO DAILY [facility] Last Admin: 01/28/18 08:57 Dose: 5 mg Aspirin (Aspirin Chew) 81 mg PO DAILY [facility] Last Admin: 01/28/18 08:57 Dose: 81 mg Bisacodyl (Dulcolax Supp) 10 mg RECTAL DAILY PRN PRN Reason: SEVERE CONSITIPATION Budesonide/Formoterol Fumarate (Symbicort 160/4.5 Mcg Inh) 2 puff INH BID [facility] Last Admin: 01/28/18 08:57 Dose: 2 puff Doxazosin Mesylate (Cardura) 2 mg PO DAILY [facility] Last Admin: 01/28/18 08:57 Dose: 2 mg Fentanyl (Duragesic 100 Mcg Patch.72hr) 1 patch T-DERMAL Q72H [facility] Last Admin: 01/27/18 08:44 Dose: 1 patch Guaifenesin (Mucinex Er) 600 mg PO BID [facility] Last Admin: 01/28/18 08:57 Dose: 600 mg Azithromycin 500 mg/ Sodium (Chloride) 250 mls @ 250 mls/hr IV.SIG Q24H [facility] Last Infusion: 01/28/18 00:43 Dose: Infused Ceftriaxone Sodium 1,000 mg/ (Sodium Chloride) 100 mls @ 200 mls/hr IV.SIG Q24H [facility] Last Infusion: 01/28/18 00:44 Dose: Infused Lactulose (Lactulose Liq) 30 ml PO DAILY PRN PRN Reason: SEVERE CONSITIPATION Levothyroxine Sodium (Synthroid) 25 mcg PO DAILY@0600 [facility] Last Admin: 01/28/18 05:51 Dose: 25 mcg Methylprednisolone Sodium Succinate (Solumedrol Inj) 40 mg IV.PUSH Q6H [facility] Last Admin: 01/28/18 05:51 Dose: 40 mg Metoclopramide HCl (Reglan Inj) 5 mg IV.PUSH Q6HR PRN; Protocol PRN Reason: NAUSEA OR VOMITING Oxycodone HCl (Roxicodone) 30 mg PO Q4H PRN PRN Reason: PAIN SCALE 3 TO 5 Last Admin: 01/28/18 10:46 Dose: 30 mg Patch Removal (Remove Old Patch) 1 each T-DERMAL Q3D ONE Stop: 01/30/18 09:01 Pravastatin Sodium (Pravachol) 40 mg PO [facility] Last Admin: 01/27/18 22:38 Dose: 40 mg Senna/Docusate Sodium (Tanvi-Colace) 1 tab PO BID [facility] Last Admin: 01/28/18 08:57 Dose: 1 tab Sennosides (Senokot) 17.2 mg PO Q12H PRN PRN Reason: Moderate Constipation Sodium Chloride (Ns Flush) 2 ml IV.FLUSH PRN PRN PRN Reason: FLUSH AFTER USING IV ACCESS Last Admin: 01/26/18 17:30 Dose: 2 ml Zolpidem Tartrate (Ambien) 10 mg PO [facility] Last Admin: 01/27/18 22:38 Dose: 10 mg Allergies Allergy/AdvReac Type Severity Reaction Status Date / Time No Known Drug Allergies Allergy Anemia Verified 01/25/18 20:49 Home Medications Medication Instructions Recorded Confirmed Type alprazolam [Xanax] 1 mg PO Q4-6H 01/25/18 01/25/18 History amlodipine 5 mg PO DAILY 01/25/18 01/25/18 History aspirin 81 mg PO DAILY 01/25/18 01/25/18 History budesonide-formoterol [Symbicort] 2 puff INHALATION BID 01/25/18 01/25/18 History doxazosin 2 mg PO DAILY 01/25/18 01/25/18 History fentanyl 1 patch TRANSDERMAL Q72H 01/25/18 01/25/18 History hydrochlorothiazide 25 mg PO DAILY 01/25/18 01/25/18 History levothyroxine 25 mcg PO DAILY 01/25/18 01/25/18 History oxycodone 30 mg PO Q4-6H PRN 01/25/18 01/25/18 History simvastatin 20 mg PO QPM 01/25/18 01/25/18 History zolpidem [Ambien] 10 mg PO HS 01/25/18 01/25/18 History Exam Vital signs: Vital Signs 01/27/18 11:44 01/27/18 14:40 01/27/18 15:30 Temperature 97 F L Pulse Rate 105 H Respiratory Rate 20 18 18 Blood Pressure 115/71 Pulse Oximetry 93 L 01/27/18 16:00 01/27/18 19:18 01/27/18 20:00 Temperature 96.9 F L 97.8 F Pulse Rate 101 H 100 H 102 H Respiratory Rate 20 16 20 Blood Pressure 115/68 131/74 Pulse Oximetry 93 L 94 L 93 L 01/28/18 07:50 01/28/18 08:09 01/28/18 11:18 Temperature 96.6 F L 97.2 F L Pulse Rate 75 102 H 96 H Respiratory Rate 20 20 20 Blood Pressure 126/74 137/73 Pulse Oximetry 95 91 L 93 L Intake & Output 01/27/18 01/28/18 01/28/18 18:59 06:59 18:59 Intake Total 720 / 720 590 / 590 Balance 720 / 720 590 / 590 Weight 88.6 kg Intake: IV 350 / 350 Azithromycin Inj 500 MG In NS 250 / 250 Inj 250 ML @ 250 mls/hr IV.SIG Q24H [facility] Rx#:[id number] Rocephin Inj 1,000 MG In NS Inj 100 / 100 100 ML @ 200 mls/hr IV.SIG Q24H [facility] Rx#:[id number] Oral 720 / 720 240 / 240 Other: # Voids 5 4 Date of Last Bowel Movement 01/26/18 01/26/18 # Bowel Movements 0 - Constitutional mild distress - Routine HEENT Exam Head: Present: normocephalic, atraumatic Eye: Present: EOMI, PERRL ENT: Present: nares patent, external ear normal - Routine Neck Exam Present: supple, full ROM - Routine Respiratory Exam Present: decreased breath sounds, wheezes - Routine Cardiovascular Exam Present: RRR - Routine Abdominal Exam Present: soft, normoactive bowel sounds - Routine Extremities Exam Present: full ROM, pulses intact - Routine Skin Exam Present: intact, dry, warm - Routine Neurological Exam Present: alert, oriented X3, moving all extremities, normal speech Results - Labs CBC & Chem 7: 01/26/18 05:00 01/26/18 05:00 Caprini VTE Risk Assessment Caprini VTE Risk Assessment: Moderate/High Risk (score >= 2) Caprini Risk Assessment Model: Point Value = 1 Point Value = 2 Point Value = 3 Point Value = 5 Age 41-60 Minor surgery BMI > 25 kg/m2 Swollen legs Varicose veins or History of unexplained or recurrent spontaneous Oral contraceptives or hormone replacement Sepsis (< 1 month) Serious lung disease, including pneumonia (< 1 month) Abnormal pulmonary function Acute myocardial infarction Congestive heart failure (< 1 month) History of inflammatory bowel disease Medical patient at bed rest Age 61-74 Arthroscopic surgery Major open surgery (> 45 min) Laparoscopic surgery (> 45 min) Malignancy Confined to bed (> 72 hours) Immobilizing plaster cast Central venous access Age >= 75 History of VTE Family history of VTE Factor V Leiden Prothrombin [id number] Lupus anticoagulant Anticardiolipin antibodies Elevated serum homocysteine Heparin-induced thrombocytopenia Other congenital or acquired thrombophilia Stroke (< 1 month) Elective arthroplasty Hip, pelvis, or leg fracture Acute spinal cord injury (< 1 month) Prophylaxis Regimen: Total Risk Factor Score Risk Level Prophylaxis Regimen 0-1 Low Early ambulation 2 Moderate Order ONE of the following: *Sequential Compression Device (SCD) *Heparin 5000 units SQ BID 3-4 Higher Order ONE of the following medications: *Heparin 5000 units SQ TID *Enoxaparin/Lovenox 40 mg SQ daily (WT < 150 kg, CrCl > 30 mL/min) *Enoxaparin/Lovenox 30 mg SQ daily (WT < 150 kg, CrCl > 10-29 mL/min) *Enoxaparin/Lovenox 30 mg SQ BID (WT < 150 kg, CrCl > 30 mL/min) AND/OR *Sequential Compression Device (SCD) 5 or more Highest Order ONE of the following medications: *Heparin 5000 units SQ TID (Preferred with Epidurals) *Enoxaparin/Lovenox 40 mg SQ daily (WT < 150 kg, CrCl > 30 mL/min) *Enoxaparin/Lovenox 30 mg SQ daily (WT < 150 kg, CrCl > 10-29 mL/min) *Enoxaparin/Lovenox 30 mg SQ BID (WT < 150 kg, CrCl > 30 mL/min) AND *Sequential Compression Device (SCD) Assessment and Plan - Assessment (1) COPD exacerbation Code(s): J44.1 - Chronic obstructive pulmonary disease with (acute) exacerbation Status: Acute (2) Hypertension Code(s): I10 - Essential (primary) hypertension Status: Chronic (3) Hyperlipidemia Code(s): E78.5 - Hyperlipidemia, unspecified Status: Chronic (4) Hypothyroid Code(s): E03.9 - Hypothyroidism, unspecified Status: Chronic (5) Anxiety Code(s): F41.9 - Anxiety disorder, unspecified Status: Chronic (6) Chronic lower back pain Code(s): M54.5 - Low back pain; G89.29 - Other chronic pain Status: Chronic - Plan Duoneb neublization + Zithromax IV + Steroids. Continue all home medicine discussed with patient. (2) Hypertension Qualifiers: Hypertension type: essential hypertension Qualified Code(s): I10 - Essential (primary) hypertension
--- NOTE | 2018-01-28 11:55 | P.PN ---
Subjective Interval history: Patient seen on 01/27/18 patient SOB better discussed with RN at bed side no acute issue wants to go home soon. Physical Exam Vital signs: Vital Signs 01/27/18 14:40 01/27/18 15:30 01/27/18 16:00 Temperature 96.9 F L Pulse Rate 105 H 101 H Respiratory Rate 18 18 20 Blood Pressure 115/68 Pulse Oximetry 93 L 01/27/18 19:18 01/27/18 20:00 01/28/18 07:50 Temperature 97.8 F 96.6 F L Pulse Rate 100 H 102 H 75 Respiratory Rate 16 20 20 Blood Pressure 131/74 126/74 Pulse Oximetry 94 L 93 L 95 01/28/18 08:09 01/28/18 11:18 Temperature 97.2 F L Pulse Rate 102 H 96 H Respiratory Rate 20 20 Blood Pressure 137/73 Pulse Oximetry 91 L 93 L Intake & Output 01/27/18 01/28/18 01/28/18 18:59 06:59 18:59 Intake Total 720 / 720 590 / 590 Balance 720 / 720 590 / 590 Weight 88.6 kg Intake: IV 350 / 350 Azithromycin Inj 500 MG In NS 250 / 250 Inj 250 ML @ 250 mls/hr IV.SIG Q24H [facility] Rx#:[id number] Rocephin Inj 1,000 MG In NS Inj 100 / 100 100 ML @ 200 mls/hr IV.SIG Q24H CONNOR Rx#:[id number] Oral 720 / 720 240 / 240 Other: # Voids 5 4 Date of Last Bowel Movement 01/26/18 01/26/18 # Bowel Movements 0 - Constitutional no acute distress - Routine HEENT Exam Head: Present: normocephalic, atraumatic Eye: Present: EOMI, PERRL ENT: Present: mucous membranes moist - Routine Neck Exam Present: supple, full ROM - Routine Respiratory Exam Present: decreased breath sounds, wheezes - Routine Cardiovascular Exam Present: RRR, S1, S2 - Routine Abdominal Exam Present: soft, normoactive bowel sounds - Routine Extremities Exam Present: full ROM, pulses intact, normal capillary refill - Routine Skin Exam Present: intact, dry, warm - Routine Neurological Exam Present: alert, oriented X3, hearing grossly intact, normal speech - Detailed Neurological Exam: Coma Scale Eye Opening: Spontaneous Verbal Response: Oriented Motor Response: Obey commands Benita Coma Scale Total: 15 - Routine Psychiatric Exam Present: normal affect, normal thought process Results - Labs CBC & Chem 7: 01/26/18 05:00 01/26/18 05:00 Microbiology 01/25/18 23:31 Blood - Peripheral Aerobic Blood Culture - Preliminary No growth in 3 days 01/25/18 23:31 Blood - Peripheral Anaerobic Blood Culture - Preliminary No growth in 3 days 01/25/18 23:36 Blood - Peripheral Aerobic Blood Culture - Preliminary No growth in 3 days 01/25/18 23:36 Blood - Peripheral Anaerobic Blood Culture - Preliminary No growth in 3 days Assessment and Plan - Assessment (1) COPD exacerbation Code(s): J44.1 - Chronic obstructive pulmonary disease with (acute) exacerbation Status: Acute (2) Hypertension Code(s): I10 - Essential (primary) hypertension Status: Chronic (3) Hyperlipidemia Code(s): E78.5 - Hyperlipidemia, unspecified Status: Chronic (4) Hypothyroid Code(s): E03.9 - Hypothyroidism, unspecified Status: Chronic (5) Anxiety Code(s): F41.9 - Anxiety disorder, unspecified Status: Chronic (6) Chronic lower back pain Code(s): M54.5 - Low back pain; G89.29 - Other chronic pain Status: Chronic - Plan Duoneb neublization + Zithromax IV + Steroids. Chronic lower back pain on fentanyl. Continue all home medicine discussed with patient. Discharge plan tomorrow. Code Status: full code. Discharge Planning: tomorrow. (2) Hypertension Qualifiers: Hypertension type: essential hypertension Qualified Code(s): I10 - Essential (primary) hypertension
--- NOTE | 2018-01-28 11:56 | P.PN ---
Subjective Interval history: Patient feel a lot better no acute issue wants to go home.today. Physical Exam Vital signs: Vital Signs 01/27/18 14:40 01/27/18 15:30 01/27/18 16:00 Temperature 96.9 F L Pulse Rate 105 H 101 H Respiratory Rate 18 18 20 Blood Pressure 115/68 Pulse Oximetry 93 L 01/27/18 19:18 01/27/18 20:00 01/28/18 07:50 Temperature 97.8 F 96.6 F L Pulse Rate 100 H 102 H 75 Respiratory Rate 16 20 20 Blood Pressure 131/74 126/74 Pulse Oximetry 94 L 93 L 95 01/28/18 08:09 01/28/18 11:18 Temperature 97.2 F L Pulse Rate 102 H 96 H Respiratory Rate 20 20 Blood Pressure 137/73 Pulse Oximetry 91 L 93 L Intake & Output 01/27/18 01/28/18 01/28/18 18:59 06:59 18:59 Intake Total 720 / 720 590 / 590 Balance 720 / 720 590 / 590 Weight 88.6 kg Intake: IV 350 / 350 Azithromycin Inj 500 MG In NS 250 / 250 Inj 250 ML @ 250 mls/hr IV.SIG Q24H [facility] Rx#:[id number] Rocephin Inj 1,000 MG In NS Inj 100 / 100 100 ML @ 200 mls/hr IV.SIG Q24H [facility]NOR Rx#:[id number] Oral 720 / 720 240 / 240 Other: # Voids 5 4 Date of Last Bowel Movement 01/26/18 01/26/18 # Bowel Movements 0 - Constitutional no acute distress - Routine HEENT Exam Head: Present: normocephalic, atraumatic Eye: Present: EOMI, PERRL ENT: Present: mucous membranes moist - Routine Neck Exam Present: supple, full ROM - Routine Respiratory Exam Present: decreased breath sounds, wheezes - Routine Cardiovascular Exam Present: RRR, S1, S2 - Routine Abdominal Exam Present: soft, normoactive bowel sounds - Routine Extremities Exam Present: full ROM - Routine Skin Exam Present: intact, dry, warm - Routine Neurological Exam Present: alert, oriented X3, moving all extremities, normal tone, hearing grossly intact, normal speech - Detailed Neurological Exam: Coma Scale Eye Opening: Spontaneous Verbal Response: Oriented Motor Response: Obey commands Benita Coma Scale Total: 15 - Routine Psychiatric Exam Present: normal affect, normal thought process Results - Labs CBC & Chem 7: 01/26/18 05:00 01/26/18 05:00 Microbiology 01/25/18 23:31 Blood - Peripheral Aerobic Blood Culture - Preliminary No growth in 3 days 01/25/18 23:31 Blood - Peripheral Anaerobic Blood Culture - Preliminary No growth in 3 days 01/25/18 23:36 Blood - Peripheral Aerobic Blood Culture - Preliminary No growth in 3 days 01/25/18 23:36 Blood - Peripheral Anaerobic Blood Culture - Preliminary No growth in 3 days Assessment and Plan - Assessment (1) COPD exacerbation Code(s): J44.1 - Chronic obstructive pulmonary disease with (acute) exacerbation Status: Acute (2) Hypertension Code(s): I10 - Essential (primary) hypertension Status: Chronic (3) Hyperlipidemia Code(s): E78.5 - Hyperlipidemia, unspecified Status: Chronic (4) Hypothyroid Code(s): E03.9 - Hypothyroidism, unspecified Status: Chronic (5) Anxiety Code(s): F41.9 - Anxiety disorder, unspecified Status: Chronic (6) Chronic lower back pain Code(s): M54.5 - Low back pain; G89.29 - Other chronic pain Status: Chronic - Plan Duoneb neublization + Zithromax IV + Steroids. Chronic lower back pain on fentanyl patch. Continue all home medicine discussed with patient. ok to discharge home today. f/u with PCP 2-3 days. (2) Hypertension Qualifiers: Hypertension type: essential hypertension Qualified Code(s): I10 - Essential (primary) hypertension
--- NOTE | 2018-01-28 12:11 | P.DS ---
Date of admission: 01/25/18 23:45 Primary care physician: Vernon Muhammad MD Brief History from admission: 62 years old white male with past medical history significant for COPD. Hypertension Hypothyrodism hyperlipidemia anxiety and previous back surgery came to my office c/o SOB/ Wheezing no nausea/ vomiting/ no fever/ chills he is oxygen dependent and feeling SOB with 4 liter oxygen with nasal canula I advised him to go to [facility] ER He went to [facility] and was admitted with COPD Exacerbation after ER Treatment he was feeling better patient remain hosptalized for total 3 days feel alot better at discharge advised to follow up with pcp 2-3 days no acute event happened during hosptalization DS: Diagnosis - Discharge Diagnosis (1) COPD exacerbation Status: Acute (2) Hypertension Status: Chronic (3) Hyperlipidemia Status: Chronic (4) Hypothyroid Status: Chronic (5) Anxiety Status: Chronic (6) Chronic lower back pain Status: Chronic DS: Medications - Discharge Medications Prescriptions: azithromycin [Zithromax] 500 mg PO DAILY 7 Days #7 tab guaifenesin [Mucinex] 600 mg PO BID 7 Days #14 tab prednisone [King] 20 mg PO DAILY 5 Days #20 tab DS: Summary Hospital Course: Patient admitted with COPD exacerbation and given steroids and duoneb neublization and IV Zithromax feel better discharge in 3 days no acute event happened ADVISED TO SEE PCP IN 2-3 DAYS. - Time Spent with Patient Total time spent providing and/or coordinating discharge services: Greater than 30 minutes - Quality: VTE Deep Vein Thrombosis/Pulmonary Embolism Present on Admission: No Exam Vital signs: Vital Signs 01/27/18 14:40 01/27/18 15:30 01/27/18 16:00 Temperature 96.9 F L Pulse Rate 105 H 101 H Respiratory Rate 18 18 20 Blood Pressure 115/68 Pulse Oximetry 93 L 01/27/18 19:18 01/27/18 20:00 01/28/18 07:50 Temperature 97.8 F 96.6 F L Pulse Rate 100 H 102 H 75 Respiratory Rate 16 20 20 Blood Pressure 131/74 126/74 Pulse Oximetry 94 L 93 L 95 01/28/18 08:09 01/28/18 11:18 Temperature 97.2 F L Pulse Rate 102 H 96 H Respiratory Rate 20 20 Blood Pressure 137/73 Pulse Oximetry 91 L 93 L Intake & Output 07/14/18 07/15/18 07/15/18 18:59 06:59 18:59 Intake Total 720 / 720 590 / 590 Balance 720 / 720 590 / 590 Weight 88.6 kg Intake: IV 350 / 350 Azithromycin Inj 500 MG In NS 250 / 250 Inj 250 ML @ 250 mls/hr IV.SIG Q24H [facility]NOR Rx#:[id number] Rocephin Inj 1,000 MG In NS Inj 100 / 100 100 ML @ 200 mls/hr IV.SIG Q24H CONNOR Rx#:[id number] Oral 720 / 720 240 / 240 Other: # Voids 5 4 Date of Last Bowel Movement 01/26/18 01/26/18 # Bowel Movements 0 Results Procedures completed during hospitalization: none Labs on day of discharge: Preliminary micro results at discharge 01/25/18 23:31 Aerobic Blood Culture - Preliminary Blood - Peripheral No growth in 3 days Anaerobic Blood Culture - Preliminary No growth in 3 days 01/25/18 23:36 Aerobic Blood Culture - Preliminary Blood - Peripheral No growth in 3 days Anaerobic Blood Culture - Preliminary No growth in 3 days - Impressions ITS Impressions Chest X-Ray 01/25/18 20:57 CONCLUSION: No acute abnormality is identified. Chest CTA 01/25/18 22:08 CONCLUSION: 1. Minimal bibasilar densities could be atelectasis or minimal infiltrates. 2. Mild emphysema and slight bronchiectatic changes. 3. No evidence for pulmonary embolism. Discharge Plan - Discharge Disposition Patient Disposition: 01 Discharge Home - Discharge Condition Condition: Good - Discharge Order Discharge Orders: Discharge Order (Routine); Ordered 01/28/18 Ordered By: Vernon Muhammad - Physicians Team Primary Care Provider: Vernon Muhammad Attending Provider: Vernon Muhammad
== END 2018-01-28 13:34 | disposition home or self-care (01) ==
LOC: PHEDA 20:35 → PH3 20:35 → PHED 20:35 → PH3 01-26 00:39
PROVIDERS: ADMIT Family Medicine; ATTEND Family Medicine
DX: Z79.899 Other long term (current) drug therapy; G89.29 Other chronic pain; Z87.891 Personal history of nicotine dependence; M54.5 Low back pain; I10 Essential (primary) hypertension; R06.02 Shortness of breath; F41.9 Anxiety disorder, unspecified; E78.5 Hyperlipidemia, unspecified; J44.1 Chronic obstructive pulmonary disease with (acute) exacerbation; E03.9 Hypothyroidism, unspecified